=== PATIENT | female | born 1990 | race Caucasian/White ===

== ENCOUNTER 2019-04-25 19:45 | Inpatient (IN) | payer OTHER ==
[2019-04-25 21:35] LABS: BASO % 0.7 % (0-2.0); EOS % 0.3 % (0-4.5); HEMATOCRIT 36.5 % (32.4-45.2); LYMPH % 16.1 % (8-40); MCH 28.5 pg (25.7-33.7); MCHC 32.8 g/dl (32.0-36.0); MEAN PLT VOLUME 10.1 fl (7.5-11.1); MONO % 4.4 % (3.8-10.2); NEUT % 78.5 % (42.8-82.8); PLATELET COUNT 299 K/MM3 (134-434); RBC 4.19 M/mm3 (3.60-5.2); RDW 15.1 % (11.6-15.6); WHITE BLOOD COUNT 14.2 K/mm3 (4.0-10.0)
--- NOTE | 2019-04-25 21:39 | HP ---
Past Medical History - Primary Care Physician PCP:: Yoselin Lebron - Admission Chief Complaint: 28yo P0 @ 40.1 wks with regular ctxns, no VB, no LOF, +FM, GBS neg History of Present Illness: 1. Bipolar on Abilify and Lamictal, DCd @ 26wks, has therapist 2. 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 GCT - 140 - GTT neg - BMI 29 - EFW today 8.3lb 4. 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 TDap and Flu shot given this 6. GBS neg 7. Pretern ctxns @ 35wks - s/p BMZ/terbutaline 8. Ex-smoker History Source: Patient, Medical Record - Past Medical History Cardiovascular: Yes: Murmur ...: 1 Infectious Disease: Yes: Other (HSV) Psych: Yes: Bipolar - Past Surgical History Hx Myomectomy: No Hx Transabdominal Cerclage: No - Smoking History Have you smoked in the past 12 months: No - Alcohol/Substance Use Hx Alcohol Use: No History of Substance Use: reports: None - Social History Usual Living Arrangement: Yes: With Spouse Do you think of yourself as: Straight/Heterosexual History of Recent Travel: No Home Medications - Allergies Allergies/Adverse Reactions: Allergies Allergy/AdvReac Type Severity Reaction Status Date / Time codeine Allergy Severe Hives Verified 03/15/19 16:10 HONEYDEW MELON Allergy Severe Swelling Uncoded 03/15/19 16:10 - Home Medications Home Medications: Ambulatory Orders Pepcid - 20 mg PO DAILY 04/25/19 Valtrex 4 mg PO DAILY 04/25/19 Review of Systems - Review of Systems Constitutional: reports: No Symptoms Eyes: reports: No Symptoms HENT: reports: No Symptoms Neck: reports: No Symptoms Cardiovascular: reports: No Symptoms Respiratory: reports: No Symptoms Gastrointestinal: reports: No Symptoms Genitourinary: reports: Other (labor contructions) Breasts: reports: No Symptoms Reported Musculoskeletal: reports: No Symptoms Integumentary: reports: No Symptoms Neurological: reports: No Symptoms Endocrine: reports: No Symptoms Hematology/Lymphatic: reports: No Symptoms Psychiatric: reports: No Symptoms Physical Exam - Maternity Constitutional: Yes: Well Nourished, No Distress, Calm Eyes: Yes: WNL HENT: Yes: WNL, Atraumatic, Normocephalic Neck: Yes: WNL, Supple, Trachea Midline Cardiovascular: Yes: WNL, Regular Rate and Rhythm Lungs: Clear to auscultation Breast(s): Yes: WNL - Abdominal Exam/OB Fundal Height: 40 (EFW 8.3lb) Presentation: Vertex Contractions: Yes Regularity: Regular Intensity: Mod/Strong Monitor Mode: External Heart Rate (range): 140 Heart Rate Location: Midline Category: I Accelerations: Uniform Decelerations: None - Vaginal Exam/OB Vaginal Bleediing: No Speculum Exam: No Dilatation (cm): 4-5 Effacement (%): 90% Amniotic Membrane Status: Intact Presentation: Vertex/Position Station: -2 - Physical Exam Musculoskeletal: Yes: WNL Extremities: Yes: WNL Edema: No Integumentary: Yes: WNL Deep Tendon Reflex Grade: Normal +2 ...Motor Strength: WNL Psychiatric: Yes: WNL, Alert, Oriented Assessment/Plan 28yo P0 @ 40wks in active labor Admit to L&D NPO, IVF, Labs Pain meds as needed Gynecoid pelvis EFW 8.3lb anticipate
[2019-04-25] MEDS ORDERED: ELECTROLYTE-148 SOLN 1,000 ML IV SCH ×2 (21:45)
[2019-04-25] MEDS ORDERED: OXYTOCIN 20 UNITS in 0.9% NS 20 UNIT/1,000 ML INFUS.BAG IV ONE (21:46)
[2019-04-25] MEDS ORDERED: LIDOCAINE HCL 1% PRESERVATIVE FREE - 30ML VIAL ONE (21:47)
[2019-04-25 21:54] LABS: INR 0.9 (0.83-1.09); PROTHROMBIN TIME (PATIENT) 10.6 SEC (9.7-13.0)
[2019-04-25 21:56] LABS: ACTIVATED PTT 30.7 SECONDS (25.2-36.5)
[2019-04-25 21:58] LABS: CREATININE 0.7 mg/dL (0.55-1.3); POTASSIUM 4.1 mmol/L (3.5-5.1)
[2019-04-25 21:59] LABS: CALCIUM 8.7 mg/dL (8.5-10.1)
[2019-04-25] MEDS ORDERED: FENTANYL/BUPIVACAINE/NS/PF - PCEA - 50 ML DISP.SYRIN EP ONE (22:01)
--- NOTE | 2019-04-25 22:05 | PN ---
Progress Note, Labor Vaginal Exam #1 Labor Exam Date: 04/25/19 Labor Exam Time: 22:00 Heart Rate (range): 140 Dilatation: 8-rim Effacement (%): 100 Amniotic Membrane Status: Intact Presentation: Vertex/Position Station: -3 Remarks: Patient is beginning to push Anesthesia requested, but patient will not be able to sit for an epidural Will start pushing MF status reassuring
[2019-04-26] MEDS ORDERED: LIDOCAINE HCL/PF 2% SDV 5ML VIAL ONE (00:12)
[2019-04-26] MEDS ORDERED: SUCCINYLCHOLINE CHLORIDE 200 MG/10 ML SYRINGE ONE (00:12)
[2019-04-26] MEDS ORDERED: PROPOFOL 20 ML ONE (00:12)
[2019-04-26] MEDS ORDERED: morphine SULFATE/PF 0.5 MG/ML (2cc Syringe - QUVA) ONE (00:36)
[2019-04-26] MEDS ORDERED: KETOROLAC TROMETHAMINE 30 MG/1 ML VIAL ONE (01:03)
[2019-04-26] MEDS ORDERED: OXYTOCIN 10 UNITS/ML VIAL ONE ×2 (01:05→02:00)
[2019-04-26] MEDS ORDERED: MIDAZOLAM HCL 2 MG/2 ML SINGLE DOSE VIAL ONE (01:10)
--- NOTE | 2019-04-26 01:16 | PN ---
Progress Note (short form) - Note Progress Note: Attended stat C/S for decels for this 28yrs old mother Mat PNL- nl GBS- neg, GCT abnl GTT nl Had received Betamethasone [id number] for PT contractions Failed Vaccum On Valtrex/ was on Abilify till 26weeks.( hist) Infant delivered - Mec stained fluid, cried soon after suctioned/ dried cord 3V 9/9, 's PE exam; alert active- not in distress HEENT- nl AFOF Chest B/l symm COR S1-S2 nl nlo heart murmur nl male Testis down Ext: FROM Neuro: Good tone and activity. RNBC Watch for resp distrtess Encourage BF/ Bonding Watch for accuchk
[2019-04-26] MEDS ORDERED: morphine SULFATE/PF 0.5 MG/ML (2cc Syringe - QUVA) EP ONE (01:28)
[2019-04-26] MEDS ORDERED: ONDANSETRON 4 MG/2 ML VIAL IVPUSH PRN (01:28)
--- NOTE | 2019-04-26 01:57 | CONSULT ---
Past Medical History, Laborist - Primary Care Physician PCP:: Yoselin Lebron - Admission Chief Complaint: Called for consultation on 04.25.19. at 21:45 hrs. Pushing for 1 h 20 min. History of Present Illness: Admitted with acrive labor. 41 w 1 d. Progressed to fully quite rapidly. Pushin with minimal progress at present. FH cat 2 w variable decels. History Source: Patient, Caregiver Limitations to Obtaining History: No Limitations - Past Medical History SUPERVISOR WOOD ROOM: Denies/None Cardio/Vascular: Denies/None Pulmonary: Denies/None Gastrointestinal: Denies/None Hepatobiliary: Denies/None Renal/: Denies/None Reproductive: Denies/None ...: 1 ...EDC by Saratho: 04/24/19 Heme/Onc: Denies/None Infectious Disease: Denies/None Psych: Denies/None Musculoskeletal: Denies/None Rheumatology: Denies/None ENT: Denies/None Endocrine: Denies/None Dermatology: Denies/None - Past Surgical History Additional Surgical History: benign lumpectomy - Social History Usual Living Arrangement: With Spouse Review of Systems Unable to obtain ROS, reason: in active labor, pushing. - Review of Systems Constitutional: reports: No Symptoms Physical Exam - Maternity Constitutional: Yes: Well Nourished, No Distress, Calm Eyes: Yes: WNL, Conjunctiva Clear, EOM Intact HENT: Yes: WNL, Atraumatic, Normocephalic Neck: Yes: WNL, Supple, Trachea Midline Cardiovascular: Yes: WNL, Regular Rate and Rhythm Breast(s): Yes: WNL - Abdominal Exam/OB Number of Fetuses: Single Presentation: Vertex Contractions: Yes Regularity: Regular Intensity: Mod/Strong Monitor Mode: External Heart Rate Location: RUQ Category: II Accelerations: Non-Uniform Decelerations: Variable - Vaginal Exam/OB Vaginal Bleediing: No Dilatation (cm): 10 Effacement (%): 100 Amniotic Membrane Status: Ruptured Presentation: Vertex/Position Station: +2 - Physical Exam Musculoskeletal: Yes: WNL Extremities: Yes: WNL Integumentary: Yes: WNL ...Motor Strength: WNL Psychiatric: Yes: WNL - Labs Lab Results: CBC, BMP 04/25/19 21:15 04/25/19 21:15 Problem List - Problems (1) Post-dates Code(s): O48.0 - POST-TERM (2) Occiput posterior presentation of fetus Code(s): O64.0XX0 - OBSTRUCTED LABOR DUE TO INCMPL ROTATION OF HEAD, UNSP Assessment/Plan Patient seems to be exhausted; not pushing effectively. Head is ; still it may be +2 with caput. ROP?; difficult to assess. Some variables; stable otherwise. D/W Dr. Sinha Allow more time with active coaching and pushing. Prepare for c/section. Trial of hand-held vacuum with "double set up" preparation. Anesthesia, neonatology notified. Pt. understands and consents.
--- NOTE | 2019-04-26 02:08 | PN ---
Progress Note (short form) - Note Progress Note: I assisted Dr. Huerta at c/section for the entirety of the case. Problem List - Problems (1) Post-dates Code(s): O48.0 - POST-TERM (2) Occiput posterior presentation of fetus Code(s): O64.0XX0 - OBSTRUCTED LABOR DUE TO INCMPL ROTATION OF HEAD, UNSP
[2019-04-26] MEDS ORDERED: diphenhydrAMINE HCL 25 MG CAPSULE (FP) PO PRN (02:14)
[2019-04-26] MEDS ORDERED: BENZOCAINE 20% 57 GM BOTTLE TP PRN (02:14)
[2019-04-26] MEDS ORDERED: IBUPROFEN 600 MG TABLET (FP) PO PRN (02:14)
[2019-04-26] MEDS ORDERED: BENZOCAINE 28 GM HEMORRHOIDAL OINTMENT PR PRN (02:14)
[2019-04-26] MEDS ORDERED: IBUPROFEN 800 MG/8 ML IJ IVPB PRN (02:14)
[2019-04-26] MEDS ORDERED: METHYLERGONOVINE MALEATE 0.2 MG/1 ML AMP IM PRN (02:14)
[2019-04-26] MEDS ORDERED: oxyCODONE HCL 5 MG TABLET PO PRN ×2 (02:14)
[2019-04-26] MEDS ORDERED: WITCH HAZEL 50% (TUCKS) 40 PAD/JAR PAD TP PRN (02:14)
[2019-04-26] MEDS ORDERED: OXYTOCIN 20 UNITS in 0.9% NS 20 UNIT/1,000 ML INFUS.BAG IV SCH (02:15)
[2019-04-26] MEDS ORDERED: DEXTROSE 5%-LACTATED RINGERS 1,000 ML IV SCH (02:15)
--- NOTE | 2019-04-26 02:17 | OP ---
Operative Note - Note: Operative Date: 04/26/19 Pre-Operative Diagnosis: 28yo P0 @ 40.1 wks with failure of decent, Category 2 FHR Operation: Primary LST c/section Findings: Viable male, APGARs 9/9 Full Term Placenta Post-Operative Diagnosis: Same as Pre-op Surgeon: Yoselin Lebron Lock Stitch Channeler: Adrian Harden Anesthesiologist/ENGLISH PROFESSOR: Shirley Hodges Anesthesia: Spinal Specimens Removed: Full term placenta Estimated Blood Loss (mls): 800 Drains, Volume Out (mls): 200 Fluid Volume Replaced (mls): 2,000 Operative Report Dictated: Yes
--- NOTE | 2019-04-26 02:18 | PN ---
Delivery - Delivery Section: Primary Type of Anesthesia: Spinal Episiotomy/Laceration: None EBL (cc): 800 Delivery, Single - Stages of Labor Date 1st Stage Initiatied: 04/25/19 Time 1st Stage Initiated: 18:30 Date 2nd Stage Initiated: 04/25/19 Time 2nd Stage Initiated: 22:30 Date of Delivery: 04/26/19 Time of Delivery: 01:01 Date Placenta Delivered: 04/26/19 Time Placenta Delivered: 01:02 Placenta: Yes: Expressed - Condition of Infant Candy Attendant/Business Analyst Consultant Present: Yes Name: Jose Rosas Gender: Male Weight: 8 lb 8 oz Position: OP Total Hours ROM (Hrs/Mins): 2 HOURS/ 1 MINUTE - 1 Minute Total Score: 9 5 Minutes Total Score: 9 - Feeding Plan Initial Plan: Exclusive throughout hospitalization Benefits of Exclusively reinforced: Yes Remarks - Remarks Remarks: Patient was pushing for 1.5hr with very slow progress Category 2 FHR observed - Varriable decels with return to baseline Maternal exhaustion and poor effort were observed vertex at +2 station, ROP position of the vertex Patient offered Vacuum extraction and agreed KIWI vacuum applied to vertex away from fontanels Two unsuccessful attempts made at delivering vertex with vacuum Pressure generated 600mmHg No adequete descent detected with vacuum aplication Decision was made to proceed with c/section Anesthesia, Neonatology, OR readiness and c/section switchboard operator assistant, Dr. Harden assembled prior to Application of vacuum Uncomplicated delivery of the fetus head an shoulders at the c/section All layers closed after delivery of fetus and placenta
[2019-04-26 03:05] VITALS: BMI 29.7
[2019-04-26] MEDS ORDERED: OXYTOCIN 20 UNITS in 0.9% NS 20 UNIT/1,000 ML INFUS.BAG IV ONE (06:30)
[2019-04-26] MEDS: CEFAZOLIN 1 GM/D5W 1 GM/50 ML BAG IVPB SCH ×2 (10:04→18:19)
[2019-04-27] MEDS ORDERED: BISACODYL 10 MG SUPP.RECT PR PRN (02:14)
--- NOTE | 2019-04-27 07:40 | OP ---
DATE OF OPERATION: DATE OF DICTATION: 04/26/2019 PREOPERATIVE DIAGNOSIS: A 28-year-old para 0 at 40 weeks, with failure to descend and category II heart rate PROCEDURE PERFORMED: Primary low-segment transverse section. POSTOPERATIVE DIAGNOSIS: A 28-year-old para 0 at 40 weeks, with failure to descend and category II heart rate FINDINGS: A viable male with Apgars of 9 and 9. Full-term placenta. Normal bilateral tubes and ovaries. SURGEON: Yoselin Lebron M.D. HEALTH CARE FACILITIES INSPECTOR: Adrian Harden MD ANESTHESIOLOGIST: Shirley Hodges M.D. ANESTHESIA: Spinal. DESCRIPTION OF PROCEDURE: After ensuring informed consent, the patient was brought to the operating room, where she was placed in the supine position with a left lateral tilt. After ensuring an adequate level of anesthesia, the abdomen was prepped and draped in sterile fashion. A Pfannenstiel skin incision was created with a scalpel and carried down to the level of the fascia with the scalpel and Bovie cautery. The fascia was incised at the midline and extended bilaterally with Bovie cautery, dissected off the rectus abdominis muscle. The rectus abdominis muscle was split in the midline and dissected superiorly and inferiorly. The peritoneum was identified, tented with a Liss clamp and incised with Metzenbaum scissors. The peritoneal incision also dissected superiorly and inferiorly. A Bina placed to retract the bladder. The vesicouterine peritoneum was tented and dissected bilaterally with Metzenbaum scissors and a bladder flap created and retracted with a Excelsior. A uterine incision was made with a scalpel and extended bilaterally with bandage scissors. The 's head was delivered without any difficulty through the abdominal incision. Shoulders delivered as well without any difficulty. The cord was clamped and cut. The infant was handed to awaiting caul fat puller. The placenta was expressed. The uterus was cleared of clots and debris, and the uterine incision was closed with 0 Biosyn in running locking fashion. A 2nd imbricating layer was created with 0 Biosyn. Several [id number] were placed on top of the 2nd imbricating layer. Bladder vessels were noted and cauterized. The abdomen was copiously irrigated. Normal tubes and ovaries were noted on each side. Subsequently, after ensuring excellent hemostasis, the peritoneum was closed with 0 Biosyn. The muscle was reapproximated at the midline with 0 Biosyn. The fascia was closed with 0 Vicryl with 1 suture. Subcutaneous sutures were placed to reapproximate the skin. The skin was closed with 4-0 V-Loc Biosyn suture. Excellent hemostasis was achieved. Estimated blood loss was 800 mL. The patient drained 200 mL of urine and received 2000 mL of IV fluids. Instrument and sponge counts were correct x2. The patient tolerated the procedure well and was brought to the recovery room in stable condition. Melo [id number]
[2019-04-27 08:26] LABS: BASO % 0.3 % (0-2.0); EOS % 0.2 % (0-4.5); HEMATOCRIT 23.2 % (32.4-45.2); HEMOGLOBIN 7.6 GM/dL (10.7-15.3); LYMPH % 13.1 % (8-40); MCH 28.5 pg (25.7-33.7); MCHC 32.7 g/dl (32.0-36.0); MEAN CELL VOLUME 87.2 fl (80-96); MEAN PLT VOLUME 9.8 fl (7.5-11.1); MONO % 4.6 % (3.8-10.2); NEUT % 81.8 % (42.8-82.8); PLATELET COUNT 230 K/MM3 (134-434); RBC 2.67 M/mm3 (3.60-5.2); RDW 15.1 % (11.6-15.6); WHITE BLOOD COUNT 14.6 K/mm3 (4.0-10.0)
[2019-04-27] MEDS: IBUPROFEN 600 MG TABLET (FP) PO PRN ×3 (08:28→19:31)
[2019-04-27] MEDS: ACETAMINOPHEN 325 MG TABLET (FP) PO PRN ×3 (08:28→19:31)
[2019-04-27] MEDS: SIMETHICONE 80 MG TAB.CHEW (FP) PO PRN ×2 (08:29→12:29)
--- NOTE | 2019-04-27 09:03 | PN ---
Post Progress Note - Subjective Subjective: No complaints. Pain is controlled. Pt is passing flatus. No nausea or vomiting. No fever or chills. Post Day: 1 Type of Delivery: Primary C/S Vital Signs: Vital Signs Temperature 98.8 F 04/27/19 02:00 Pulse Rate 106 H 04/27/19 02:00 Respiratory Rate 04/27/19 05:32 Blood Pressure 114/71 04/27/19 02:00 O2 Sat by Pulse Oximetry (%) 100 04/26/19 02:50 Breast Exam: Yes: Soft Uterus: Yes: Fundus Firm, Fundus below umbilicus, Non-tender Incision: Yes: Dressing dry and intact Abdomen/GI: Yes: Abdomen soft, Passing flatus, Tolerating PO Lochia: Yes: Rubra Lochia, amount: Small Extremities: Yes: Calves non-tender Perineum: Yes: Intact Activity: Ambulating - Labs Labs: CBC WBC 14.6 K/mm3 (4.0-10.0) H 04/27/19 07:05 RBC 2.67 M/mm3 (3.60-5.2) L 04/27/19 07:05 Hgb 7.6 GM/dL (10.7-15.3) L 04/27/19 07:05 Hct 23.2 % (32.4-45.2) L D 04/27/19 07:05 MCV 87.2 fl (80-96) 04/27/19 07:05 MCH 28.5 pg (25.7-33.7) 04/27/19 07:05 MCHC 32.7 g/dl (32.0-36.0) 04/27/19 07:05 RDW 15.1 % (11.6-15.6) 04/27/19 07:05 Plt Count 230 K/MM3 (134-434) D 04/27/19 07:05 MPV 9.8 fl (7.5-11.1) 04/27/19 07:05 Absolute Neuts (auto) 11.9 K/mm3 (1.5-8.0) H 04/27/19 07:05 Neutrophils % 81.8 % (42.8-82.8) 04/27/19 07:05 Lymphocytes % 13.1 % (8-40) 04/27/19 07:05 Monocytes % 4.6 % (3.8-10.2) 04/27/19 07:05 Eosinophils % 0.2 % (0-4.5) 04/27/19 07:05 Basophils % 0.3 % (0-2.0) 04/27/19 07:05 Nucleated RBC % 0 % (0-0) 04/27/19 07:05
--- NOTE | 2019-04-27 11:05 | PN ---
Progress Note (short form) - Note Progress Note: 28F POD#1 c section under spinal anesthesia with duramorph. Pt. doing well this am. Ambulating. No anesthesia related complications.
--- NOTE | 2019-04-28 08:12 | PN ---
Post Progress Note - Subjective Subjective: Patient without acute complaints. Reports tolerating oral intake without nausea or vomiting. Ambulating without dizziness. Denies fevers or chills. Pain well controlled with oral pain medication. well. Passing flatus. Post Day: 2 Type of Delivery: Primary C/S Vital Signs: Vital Signs Temperature 97.3 F L 04/27/19 22:00 Pulse Rate 103 H 04/27/19 22:00 Respiratory Rate 20 04/27/19 22:00 Blood Pressure 128/75 04/27/19 22:00 O2 Sat by Pulse Oximetry (%) 100 04/26/19 02:50 Breast Exam: Yes: Engorged Uterus: Yes: Fundus Firm, Fundus below umbilicus Incision: Yes: Dressing dry and intact Abdomen/GI: Yes: Abdomen soft, Tender (mild incisional), Passing flatus, Tolerating PO. No: Abdominal Distention Lochia, amount: Moderate Extremities: Yes: Calves non-tender, Edema (+1) Activity: Ambulating - Labs Labs: CBC WBC 14.6 K/mm3 (4.0-10.0) H 04/27/19 07:05 RBC 2.67 M/mm3 (3.60-5.2) L 04/27/19 07:05 Hgb 7.6 GM/dL (10.7-15.3) L 04/27/19 07:05 Hct 23.2 % (32.4-45.2) L D 04/27/19 07:05 MCV 87.2 fl (80-96) 04/27/19 07:05 MCH 28.5 pg (25.7-33.7) 04/27/19 07:05 MCHC 32.7 g/dl (32.0-36.0) 04/27/19 07:05 RDW 15.1 % (11.6-15.6) 04/27/19 07:05 Plt Count 230 K/MM3 (134-434) D 04/27/19 07:05 MPV 9.8 fl (7.5-11.1) 04/27/19 07:05 Absolute Neuts (auto) 11.9 K/mm3 (1.5-8.0) H 04/27/19 07:05 Neutrophils % 81.8 % (42.8-82.8) 04/27/19 07:05 Lymphocytes % 13.1 % (8-40) 04/27/19 07:05 Monocytes % 4.6 % (3.8-10.2) 04/27/19 07:05 Eosinophils % 0.2 % (0-4.5) 04/27/19 07:05 Basophils % 0.3 % (0-2.0) 04/27/19 07:05 Nucleated RBC % 0 % (0-0) 04/27/19 07:05 Assessment/Plan 28 yo POD # 2 s/p primary CD, afebrile, vital signs stable, doing well 1. Continue routine postoperative care. 2. Anemia noted Will start ferrous sulafte Will monitor for signs of worsening anemia 3. Encourage ambulation and incentive spirometer use 4. Continue oral pain medication 5. Anticipate discharge home postoperative day #3 or #4
[2019-04-28] MEDS: FERROUS SO4 325 MG TABLET (FP) PO SCH ×3 (09:56→22:02)
[2019-04-28] MEDS: IBUPROFEN 600 MG TABLET (FP) PO PRN ×2 (09:56→20:34)
[2019-04-28] MEDS: ACETAMINOPHEN 325 MG TABLET (FP) PO PRN ×2 (09:57→20:33)
--- NOTE | 2019-04-28 16:03 | PATH ---
Surgical Pathology Report Patient Name: SCOTTIE FRIAS Med. Rec. #: [id number] /Age/Gender: 1990 (Age: 28) / F Account: [id number] Location: [facility] OBS/RING CONDUCTOR Taken: 04/26/2019 Received: 04/26/2019 Reported: 04/28/2019 Physicians: Yoselin Lebron M.D. Specimen(s) Received PLACENTA Clinical History , failure to descend Removal of fibroadenoma right breast 2005 Final Diagnosis PLACENTA: THIRD TRIMESTER PLACENTA SHOWING PIGMENT LADEN MACROPHAGES WITHIN THE AMNION AND CHORION, CONSISTENT WITH MECONIUM STAINING (MILD). TRIVASCULAR CORD. Electronically Signed Veronica Berry M.D. Gross Description The specimen is received fresh labeled placenta and is a 340 gram, 17.0 x 16.5 x 2.4 cm. placenta with attached membranes and umbilical cord. The attached membranes are lepe green, meconium stained, translucent with focal opacities and insert marginally. The umbilical cord measures 11 cm. in length and averages 1.1 cm. in diameter. The cord inserts eccentrically, 5 cm. to the nearest margin. No true knots or strictures are identified. Cut surface of the umbilical cord reveals 3 vessels. The surface is souza green, meconium stained with minimal fibrin deposition and appropriate caliber vessels. The maternal surface is red-brown with focal defects. Sectioning reveals red-brown, spongy parenchyma. No lesions are identified. Carpet Mechanic sections are submitted in three cassettes as follows: 1- membrane rolls and umbilical cord; 2-3- full thickness sections of placenta. /04/27/2019 [facility]/04/27/2019
[2019-04-28] MEDS: SIMETHICONE 80 MG TAB.CHEW (FP) PO PRN (20:34)
[2019-04-28] MEDS ORDERED: SENNOSIDES/DOCUSATE COMBO (SENNA PLUS) TABLET (UD) PO PRN (22:00)
[2019-04-29 08:05] VITALS: BP 132/82; PULSE 93; TEMP 97.8
[2019-04-29 09:07] LABS: BASO % 0.4 % (0-2.0); EOS % 2.3 % (0-4.5); HEMATOCRIT 25.1 % (32.4-45.2); HEMOGLOBIN 8.3 GM/dL (10.7-15.3); LYMPH % 20.3 % (8-40); MEAN PLT VOLUME 9.2 fl (7.5-11.1); MONO % 3.9 % (3.8-10.2); NEUT % 73.1 % (42.8-82.8); PLATELET COUNT 270 K/MM3 (134-434); RBC 2.85 M/mm3 (3.60-5.2); RDW 15.5 % (11.6-15.6); WHITE BLOOD COUNT 11.2 K/mm3 (4.0-10.0)
[2019-04-29] MEDS: IBUPROFEN 600 MG TABLET (FP) PO PRN (09:11)
[2019-04-29] MEDS: FERROUS SO4 325 MG TABLET (FP) PO SCH (09:11)
[2019-04-29] MEDS: ACETAMINOPHEN 325 MG TABLET (FP) PO PRN (09:12)
[2019-04-29] MEDS: SIMETHICONE 80 MG TAB.CHEW (FP) PO PRN (09:13)
--- NOTE | 2019-04-29 18:18 | DS ---
Physical Exam-FRAUD INVESTIGATOR Vital Signs: Vital Signs Temperature 97.8 F 04/29/19 07:30 Pulse Rate 93 H 04/29/19 07:30 Respiratory Rate 18 04/29/19 07:30 Blood Pressure 132/82 04/29/19 07:30 O2 Sat by Pulse Oximetry (%) 100 04/26/19 02:50 Constitutional: Yes: Well Nourished, No Distress, Calm Eyes: Yes: WNL, Conjunctiva Clear, EOM Intact HENT: Yes: WNL, Atraumatic, Normocephalic Neck: Yes: WNL, Supple, Trachea Midline Cardiovascular: Yes: WNL, Regular Rate and Rhythm Respiratory: Yes: WNL, Regular, CTA Bilaterally Gastrointestinal: Yes: WNL ...Rectal Exam: Yes: WNL Renal/: Yes: WNL ....Post : Yes: Uterus firm, Uterus non-tender, Slight lochia rubra, Slight lochia serosa Breast(s): Yes: WNL Musculoskeletal: Yes: WNL Extremities: Yes: WNL Edema: No Integumentary: Yes: WNL Wound/Incision: Yes: Clean/Dry, Well Approximated, Sutures Intact, Steri Strips Neurological: Yes: WNL, Alert, Oriented ...Motor Strength: WNL Psychiatric: Yes: WNL, Alert, Oriented Labs: CBC, BMP 04/29/19 08:00 04/25/19 21:15 Delivery - Delivery Section: Primary Type of Anesthesia: Spinal Episiotomy/Laceration: None EBL (cc): 800 Delivery, Single - Stages of Labor Date 1st Stage Initiatied: 04/25/19 Time 1st Stage Initiated: 18:30 Date 2nd Stage Initiated: 04/25/19 Time 2nd Stage Initiated: 22:30 Date of Delivery: 04/26/19 Time of Delivery: 01:01 Time Placenta Delivered: 01:02 Placenta: Yes: Expressed - Condition of Head Wrestling Coach/Supervisor Meter Repair Shop Present: Yes Name: Jose Rosas Gender: Male Weight: 8 lb 8 oz Position: OP Total Hours ROM (Hrs/Mins): 2 HOURS/ 1 MINUTE - 1 Minute Total Score: 9 5 Minutes Total Score: 9 - Feeding Plan Initial Plan: Exclusive throughout hospitalization Benefits of Exclusively reinforced: Yes Discharge Summary Problems reviewed: Yes Reason For Visit: LABOR failure to descent Procedures: Principal: primary LST c/s Hospital Course: anemia Health Concerns: anemia Plan of Treatment: iron, vit Goals: hb 12 Condition: Good - Instructions Diet, Activity, Other Instructions: Call Dr. Castellanos and make appt. to be seen in one week. If pain, heavy bleeding, or fever, call M.D. If redness or drainage noted to incision, call MSonaD. Referrals: Jimenez Castellanos MD [Staff Physician] - Disposition: HOME - Home Medications Comprehensive Discharge Medication List: Ambulatory Orders Pepcid - 20 mg PO DAILY 04/25/19 Valtrex 4 mg PO DAILY 04/25/19 Ibuprofen [Motrin -] 600 mg PO QID #28 tablet 04/29/19
== END 2019-04-29 14:20 | disposition home or self-care (01) | DRG 788 ==
LOC: JDEL 19:45 → JLDR 20:50 → J3W 04-26 05:13
PROVIDERS: ADMIT Obstetrics & Gynecology; ATTEND Obstetrics & Gynecology
PROC: 10D00Z1 Extraction of Products of Conception, Low, Open Approach (ICD-10-PCS; principal; 2019-04-26)
DX: O62.0 Primary inadequate contractions (principal); O48.0 Post-term pregnancy; Z3A.40 40 weeks gestation of pregnancy; O99.013 Anemia complicating pregnancy, third trimester; O99.343 Other mental disorders complicating pregnancy, third trimester; F28 Other psychotic disorder not due to a substance or known physiological condition; F31.9 Bipolar disorder, unspecified; O36.8330 Maternal care for abnormalities of the fetal heart rate or rhythm, third trimester, not applicable or unspecified; Z37.0 Single live birth
CPT/HCPCS: 36415; 36600; 80048; 82803; 85025; 85610; 85730; 86593; 86850; 86900; 86901